=== PATIENT | male | born 1970 | race Caucasian/White ===

== ENCOUNTER 2020-02-20 01:02 | Emergency (ER) | payer SELFPAY ==
--- NOTE | 2020-02-20 01:25 | ERPHSYRPT ---
- History of Present Illness Time Seen by Provider: 02/20/20 01:22 Source: patient, police Exam Limitations: no limitations Patient Subjective Stated Complaint: needs clearance for care home. Triage Nursing Assessment: pt alert and oriented, answers questions approp. pt in with law enforcement, ambulatory with steady gait noted. respirations nonlabored. skin warm and dry. speech wnl. Physician History: Is a 49-year-old white male who is brought in by the Police Department for medical clearance for care home. Patient admits to consuming alcohol and smoking some marijuana. He denies any other illicit drug use. Patient denies any head injury, denies chest pain, denies shortness of breath, denies abdominal pain. Patient is oriented and alert. He does smell of alcohol. Timing/Duration: today Severity: moderate Associated Symptoms: denies symptoms Allergies/Adverse Reactions: cinnamon Allergy (Intermediate, Verified 02/20/20 01:16) Home Medications: No Reportable Medications [No Reported Medications] 02/20/20 [History] Hx Tetanus, Diphtheria Vaccination/Date Given: Yes Hx Influenza Vaccination/Date Given: No Hx Pneumococcal Vaccination/Date Given: No Immunizations Up to Date: Yes Travel Risk - International Travel Have you traveled outside of the country in past 3 weeks: No - Coronavirus Screening Are you exhibiting any of the following symptoms?: No Close contact with a COVID-19 positive Pt in past 14-21 Days: No - Review of Systems Constitutional: No Symptoms Eyes: No Symptoms Ears, Nose, & Throat: No Symptoms Respiratory: No Symptoms Cardiac: No Symptoms Abdominal/Gastrointestinal: No Symptoms Genitourinary Symptoms: No Symptoms Musculoskeletal: No Symptoms Skin: No Symptoms Neurological: No Symptoms Psychological: Alcohol Abuse, Drug Abuse Endocrine: No Symptoms Hematologic/Lymphatic: No Symptoms Immunological/Allergic: No Symptoms All Other Systems: Reviewed and Negative - Past Medical History Pertinent Past Medical History: Yes Neurological History: No Pertinent History ENT History: No Pertinent History Cardiac History: No Pertinent History Respiratory History: No Pertinent History Endocrine Medical History: No Pertinent History Musculoskeletal History: No Pertinent History GI Medical History: No Pertinent History History: No Pertinent History Psycho-Social History: No Pertinent History Male Reproductive Disorders: No Pertinent History Other Medical History: hypoglycemia - Past Surgical History Past Surgical History: Yes Neuro Surgical History: No Pertinent History Cardiac: No Pertinent History Respiratory: No Pertinent History Gastrointestinal: No Pertinent History Genitourinary: No Pertinent History Musculoskeletal: No Pertinent History Male Surgical History: No Pertinent History Other Surgical History: lt elbow, rt wrist - Social History Smoking Status: Current every day smoker How long have you smoked: 40yrs Exposure to second hand smoke: Yes Drug Use: marijuana - Nursing Vital Signs Nursing Vital Signs: Initial Vital Signs Pulse Rate 91 H 02/20/20 01:05 Respiratory Rate 16 02/20/20 01:05 Blood Pressure 119/87 02/20/20 01:05 O2 Sat by Pulse Oximetry 96 02/20/20 01:05 Pain Scale Pain Intensity 0 - Physical Exam General Appearance: no apparent distress, alert Eye Exam: PERRL/EOMI, eyes nml inspection Ears, Nose, Throat Exam: normal ENT inspection, moist mucous membranes Neck Exam: normal inspection, non-tender, supple, full range of motion Respiratory Exam: normal breath sounds, lungs clear, airway intact, No chest tenderness, No respiratory distress Cardiovascular Exam: regular rate/rhythm, normal heart sounds, normal peripheral pulses Gastrointestinal/Abdomen Exam: soft, normal bowel sounds, No tenderness Rectal Exam: not done Back Exam: normal inspection, normal range of motion, No CVA tenderness, No vertebral tenderness Extremity Exam: normal inspection, normal range of motion, pelvis stable Neurologic Exam: alert, oriented x 3, cooperative, chute greaser II-XII nml as tested, intoxicated appearance Skin Exam: normal color, warm, dry Lymphatic Exam: No adenopathy SpO2 Interpretation: normal SpO2: 96 O2 Delivery: Room Air - Course Nursing assessment & vital signs reviewed: Yes - Progress Progress: unchanged Counseled pt/family regarding: diagnosis - Departure Departure Disposition: Penitentiary/Half-Way Clinical Impression: Alcohol intoxication, Medical clearance for incarceration Condition: Stable Critical Care Time: No
[2020-02-20 01:37] VITALS: BP 132/90; PULSE 83; O2SAT 98
== END 2020-02-20 01:38 | disposition home or self-care (01) ==
LOC: ED 01:02
DX: F10.129 Alcohol abuse with intoxication, unspecified (principal); Z02.89 Encounter for other administrative examinations
CPT/HCPCS: 99283